=== PATIENT | female | born 1965 | race Caucasian/White ===

== ENCOUNTER 2018-04-03 06:51 | Inpatient (IN) | payer OTHER ==
[2018-04-03 07:58] LABS: #Basophils 0.1 thou/uL (0.0-0.2); #Eosinphils 0.4 thou/uL (0.0-0.7); #Lymphocytes 2.1 thou/uL (1.20-3.40); #Monocytes 0.8 thou/uL (0.11-0.59); %Basophils 1.2 % (0.0-1.0); %Eosinophils 4.2 % (0.0-10.0); %Lymphocytes 25.7 % (21.0-51.0); %Monocytes 9.1 % (0.0-10.0); %Neutrophils 59.8 % (42.0-75.0); Hemoglobin 13.7 g/dL (12.0-16.0); Mean Corpuscular HGB CONC 34.4 g/dL (32.0-36.0); Mean Corpuscular Hemoglobin 31.8 pg (27.0-31.0); Mean Corpuscular Volume 92.5 fL (78.0-98.0); Mean Platelet Volume 6.7 fL (7.4-10.4); Platelet Count 247 thou/uL (130-400); RBC Distribution Width 12.4 % (11.5-14.5); White Blood Cell (WBC) Count 8.3 thou/uL (4.8-10.8)
[2018-04-03 08:16] LABS: Anion Gap 12 mmol/L (10-20); BUN (Urea Nitrogen) 13 mg/dL (9.8-20.1); Calc. Creatinine Clearance 118 mL/min (70-130); Calcium 9.8 mg/dL (7.8-10.44); Carbon Dioxide 26 mmol/L (22-29); Chloride 107 mmol/L (98-107); Estimated GFR-MDRD 71; Glucose 111 mg/dL (70-105); Potassium 3.8 mmol/L (3.5-5.1); Sodium 141 mmol/L (136-145)
[2018-04-03] MEDS ORDERED: CEFAZOLIN/Water 2 GM/20 ML SYRINGE ONE ×2 (08:21)
[2018-04-03] MEDS ORDERED: Bacitracin Zinc Ointment 30 gm TUBE ONE (08:22)
[2018-04-03] MEDS ORDERED: Sodium Chloride 0.9% 0 ML ONE (08:54)
[2018-04-03] MEDS ORDERED: Promethazine HCl 25 MG/ML VIAL ONE ×2 (09:12→11:13)
[2018-04-03] MEDS ORDERED: HYDROmorphone 0.5 MG/0.5 ML SYRINGE ONE ×3 (09:12→11:43)
[2018-04-03] MEDS ORDERED: Fentanyl 100 MCG/2 ML VIAL ONE ×3 (10:04→11:56)
[2018-04-03] MEDS ORDERED: SUGAMMADEX SODIUM 200 MG/2 ML VIAL ONE (10:10)
--- NOTE | 2018-04-03 10:38 | OP ---
DATE OF PROCEDURE: 04/03/2018 SURGEON: Berto Gomes M.D. THREAD MACHINE OPERATOR: Ramin Wood PROCEDURE: Suboccipital craniectomy, C1 laminectomy, decompression of Chiari malformation. PROCEDURE IN DETAIL: The patient was brought to the operating room and intubated. She was rolled in the prone position on gel-filled chest rolls with head fixed in neutral position in the yuli head of maintenance. A midline incision was made exposing the suboccipital cranium and the C1 lamina. The midlin e suboccipital craniectomy was performed including the foramen magnum and a C1 laminectomy was perfor med completely decompressing the foramen magnum in the C1 region. The wound was then extensively irr igated, immaculate hemostasis was secured. Vancomycin powder was applied and the wound was closed in anatomic layers.
[2018-04-03] MEDS ORDERED: HYDROmorphone 2 MG/ML VIAL SLOW IVP PRN (10:52)
[2018-04-03] MEDS ORDERED: Ondansetron HCl/PF 4 MG/2 ML Vial IVP PRN (10:52)
[2018-04-03] MEDS ORDERED: Promethazine HCl 25 MG/ML VIAL SLOW IVP PRN (10:52)
[2018-04-03] MEDS ORDERED: Morphine Sulfate 2 MG/ML SYRINGE SLOW IVP PRN (10:52)
[2018-04-03] MEDS ORDERED: Mag-Al 1200 mg/1200 mg/30 ML UDCUP PO PRN (11:04)
[2018-04-03] MEDS ORDERED: traMADol HCl 50 MG TAB PO PRN ×2 (11:04)
[2018-04-03] MEDS ORDERED: Promethazine 25 MG TAB PO PRN (11:04)
[2018-04-03] MEDS ORDERED: tiZANidine HCl 4 MG TAB PO PRN (11:04)
[2018-04-03] MEDS ORDERED: Morphine 4 MG/ML Carpuject SLOW IVP PRN (11:04)
[2018-04-03] MEDS ORDERED: Promethazine HCl 12.5 MG SUPP PR PRN (11:04)
[2018-04-03] MEDS ORDERED: Milk Of Magnesia 30 ML UDCUP PO PRN (11:04)
[2018-04-03] MEDS ORDERED: HYDROcodone/Acetaminophen 10/325 mg Tablet PO PRN (11:04)
[2018-04-03] MEDS ORDERED: diphenhydrAMINE 25 MG CAP PO PRN (11:04)
[2018-04-03] MEDS ORDERED: Promethazine HCl 25 MG/ML VIAL IM PRN (11:04)
[2018-04-03] MEDS ORDERED: diphenhydrAMINE 50 MG/ML VIAL IVP PRN (11:04)
[2018-04-03] MEDS ORDERED: PROVENTIL INHALER 6.7 G (200 INHALATIONS) INH PRN (11:08)
[2018-04-03] MEDS ORDERED: Fioricet 325/50/40 mg Tablet PO PRN (11:09)
[2018-04-03] MEDS ORDERED: Loratadine/Pseudoephedrine 10/240 mg Tablet PO PRN (11:10)
[2018-04-03] MEDS ORDERED: Docusate 100 MG CAP PO PRN (11:10)
[2018-04-03] MEDS ORDERED: Ondansetron HCl/PF 4 MG/2 ML Vial ONE ×2 (12:24→13:57)
[2018-04-03] MEDS ORDERED: hydrALAZINE 20 MG/ML VIAL ONE (12:53)
[2018-04-03 13:33] VITALS: BMI 34.8
[2018-04-03] MEDS ORDERED: Glycopyrrolate 0.2 MG/ML 5 ML SYRINGE ONE (13:57)
[2018-04-03] MEDS ORDERED: Dexamethasone 20 MG/5 ML VIAL ONE (13:57)
[2018-04-03] MEDS ORDERED: PROPOFOL 200 MG/20 ML VIAL ONE (13:57)
[2018-04-03] MEDS ORDERED: CEFAZOLIN/Water 2 GM/20 ML SYRINGE SLOW IVP SCH (14:00)
[2018-04-03] MEDS: Sodium Chloride 0.9% 1,000 ML IV SCH (17:14)
[2018-04-03] MEDS: CEFAZOLIN/Water 2 GM/20 ML SYRINGE SLOW IVP SCH (17:15)
--- NOTE | 2018-04-03 18:46 | CON ---
DATE OF CONSULTATION: 04/03/2018 SERVICE: Pulmonary Medicine. REASON FOR CONSULTATION: ICU patient. HISTORY OF PRESENT ILLNESS: The patient is a 53-year-old white female with past medical history significant for Chiari malformation. She has been having some chronic discomfort associated with that. As such, she presented for an elective outpatient suboccipital craniectomy and C1 laminectomy. She is postop day 0 from that procedure. In the PACU, she had over 200 mcg of fentanyl. She is starting to have a little bit of nausea associated with that. Prior to this procedure, she was in her usual state of health and there were no specific events. She currently denies any chest pain, shortness of breath, abdominal discomfort, or diarrhea. She is having nausea and has vomited up a little bit of bilious material. She complains of having appropriate postop head discomfort. PAST MEDICAL HISTORY: 1. Chiari malformation. 2. Asthma. 3. Migraine headache. 4. Recent hydrocephalus. 5. Hypothyroidism. 6. Allergic rhinitis. 7. Osteoarthritis. 8. Major depressive disorder. PAST SURGICAL HISTORY: 1. Bilateral tubal ligation. 2. Laparoscopic cholecystectomy. 3. Deviated septum repair. 4. Bunionectomy. 5. BMT x2. 6. Suboccipital craniectomy and C1 laminectomy with decompression of Chiari malformation. FAMILY HISTORY: Noncontributory. SOCIAL HISTORY: Negative for alcohol, tobacco or significant illicit drug use. She has no exposures to chemicals, dusts, asbestos or tuberculosis. ALLERGIES: AZITHROMYCIN, INFLUENZA VIRUS, RANITIDINE. MEDICATIONS: List of her inpatient medications were reviewed. No specific updates were made at this time. REVIEW OF SYSTEMS: General, head, ears, eyes, nose, throat, cardiovascular, respiratory, GI, , musculoskeletal, neurologic and skin is negative except as mentioned in the HPI. PHYSICAL EXAMINATION: VITAL SIGNS: Afebrile, pulse 61, blood pressure 137/62, respirations 15, saturation 93% on simple facemask with 6 liters . HEENT: Normocephalic, atraumatic. Sclerae are white, conjunctivae pink. Oral mucosa is moist without lesions. LUNGS: Decent air entry. There is no prolonged expiratory phase, wheezing, rhonchi or crackles. HEART: Normal rate, regular. ABDOMEN: Soft, nontender, nondistended. Bowel sounds are positive. MUSCULOSKELETAL: No cyanosis or clubbing. There is no pitting in the bilateral lower extremities. NEUROLOGIC: Grossly nonfocal. LABORATORY DATA: WBC 8.3, hemoglobin 13.7, platelets 247,000. Basic metabolic profile is otherwise unremarkable. ASSESSMENT: 1. Chiari malformation, status post decompression, postop day 0. 2. Asthma without current exacerbation. 3. Postoperative ileus, likely transient. PLAN: I will continue supportive care and minimize any pain medications as tolerated. Frequent neuro checks will be followed. We will continue her home asthma medications and we will watch for signs of exacerbation. If she proves to have obstructive events overnight, outpatient polysomnogram may need to be entertained. Pulmonary will continue to follow while she remains in this location. 70 minutes have been devoted to this patient in various activities. I personally reviewed all imaging studies and laboratory data noted within this document. For fifty percent of this time, I was interacting with the patient at the bedside or coordinating care with the care team. For the remainder of the time I was immediately available to the patient in the hospital unit. JD
[2018-04-03] MEDS: Fluticasone Propionate Nasal Spray 16 gm Bottle NASAL SCH (21:13)
[2018-04-03] MEDS: Montelukast Sodium 10 mg Tablet PO SCH (21:13)
[2018-04-03] MEDS: Gabapentin 300 MG CAP PO SCH (21:13)
[2018-04-03] MEDS: Ondansetron HCl/PF 4 MG/2 ML Vial SLOW IVP PRN (21:21)
[2018-04-03] MEDS: Mometasone/Formoterol 120 PUFF INHALER INH SCH (22:24)
[2018-04-04] MEDS: Sodium Chloride 0.9% 1,000 ML IV SCH ×2 (02:11→14:58)
[2018-04-04] MEDS: CEFAZOLIN/Water 2 GM/20 ML SYRINGE SLOW IVP SCH (02:11)
[2018-04-04] MEDS: Levothyroxine Sodium 88 MCG TAB PO SCH (06:46)
[2018-04-04] MEDS: Mometasone/Formoterol 120 PUFF INHALER INH SCH ×2 (06:52→18:31)
--- NOTE | 2018-04-04 07:36 | PRG ---
DATE OF SERVICE: 04/04/2018 ATTENDING PHYSICIAN: Dr. Berto Gomes The patient is a 53-year-old female postoperative day #1 following suboccipital craniectomy and C1 la minectomy for Chiari malformation. Overnight she reports she has had some soreness to the back of th e neck and some headache in the occipital region. She has also had some nausea and vomiting. She re ports both her pain and her nausea have been improved with medications. She is not tolerating much o f a diet at this time and she has not ambulated much in the department. She has remained stable in t he ICU overnight and at this time I feel it is appropriate to transition to the floor. We will wendy nue to advance her diet and mobilize appropriately.
[2018-04-04] MEDS: Ondansetron HCl/PF 4 MG/2 ML Vial SLOW IVP PRN (07:39)
--- NOTE | 2018-04-04 09:08 | PRG ---
DATE OF SERVICE: SERVICE: Pulmonary Medicine INTERVAL HISTORY: The patient is doing really well post craniectomy. She continues to have a little bit of nausea that comes and goes. That being said, at this moment, she is feeling pretty good. Sh jennifer is moving all 4 extremities. She denies any vertigo. Otherwise, there has been no interval change to her condition. PHYSICAL EXAMINATION: VITAL SIGNS: Afebrile, pulse 54, blood pressure 157/61, respirations 16, saturation 96% on room air. GENERAL: The patient is awake, alert, in no apparent distress. LUNGS: Excellent air entry with no prolonged expiratory phase, wheezing, rhonchi or crackles. HEART: Normal rate, regular. ABDOMEN: Soft, nontender, nondistended. Bowel sounds are positive. MUSCULOSKELETAL: No cyanosis or clubbing. No pitting in the bilateral lower extremities. NEUROLOGIC: Grossly nonfocal. ASSESSMENT: 1. Chiari malformation, status post decompression, postop day #1. 2. Asthma without current exacerbation. 3. Postop ileus. DISCUSSION AND PLAN: The patient is still not tolerating p.o. and continues to have persistent episo dic nausea and vomiting. That being said, hemodynamically, neurologically, and respiratory godinez, the patient is doing absolutely wonderful. Agree with transition to the floor. When she lands on the prabhjot, I will sign off, but my suspicion is that she does have some sleep apnea based on a positive sc reen. As such, we will set her up to see me in clinic in the outpatient setting if she so inclined. We will work on mobilizing her through the day when she arrives on the floor.
[2018-04-04] MEDS: Fluticasone Propionate Nasal Spray 16 gm Bottle NASAL SCH ×2 (11:06→20:19)
[2018-04-04] MEDS: Ascorbic Acid 500 mg Chewable Tablet PO SCH (11:06)
[2018-04-04] MEDS: Magnesium Oxide 250 MG TAB PO SCH (11:06)
[2018-04-04] MEDS: Multivit, Chewable SF 1 TAB PO SCH (11:06)
[2018-04-04] MEDS: HYDROcodone/Acetaminophen 10/325 mg Tablet PO PRN ×2 (15:36→19:26)
--- NOTE | 2018-04-04 20:26 | PDOC.PN ---
- Subjective Encounter Start Date: 04/04/18 Encounter Start Time: 20:25 Subjective: Consulted for general med mgmt. s/p suboccipital craniectomy and C1 -: laminectomy for Chiari malformation POD#1. Hx of Asthma, Migraines, -: Hypothyroidism. Reviewed hx, labs, rads. Some pain but better with Dow - Objective MAR Reviewed: Yes Vital Signs & Weight: Vital Signs (12 hours) Temp Pulse Resp BP BP Pulse Ox 04/04/18 18:31 77 16 94 L 04/04/18 15:50 98.1 F 77 18 178/79 H 92 L 04/04/18 11:29 99.3 F 70 12 155/75 H 94 L 04/04/18 08:53 98.8 F 67 16 148/82 H 96 04/04/18 08:52 98.8 F 67 16 96 Weight Weight 216 lb 0.848 oz Most Recent Monitor Data Heart Rate from ECG 77 NIBP 157/61 NIBP BP-Mean 86 Respiration from ECG 16 SpO2 96 I&O: 04/03/18 04/04/18 04/05/18 06:59 06:59 06:59 Intake Total 1366 875 Output Total 1600 1300 Balance -234 -425 Result Diagrams: 04/03/18 07:53 04/03/18 07:53 EKG Reviewed by me: Yes (04/03/18 - NSR, no acute ST-T wave changes) Phys Exam - Physical Examination Constitutional: NAD HEENT: PERRLA, sclera anicteric, oral pharynx no lesions Neck: no nodes, no JVD, supple Respiratory: no wheezing, no rales, no rhonchi, clear to auscultation bilateral Cardiovascular: RRR, no significant murmur, no rub, gallop Gastrointestinal: soft, non-tender, no distention, positive bowel sounds Musculoskeletal: no edema, pulses present Neurological: non-focal, normal sensation, moves all 4 limbs Psychiatric: normal affect, A&O x 3 Skin: no rash, normal turgor, cap refill <2 seconds Dx/Plan (1) Asthma Code(s): J45.909 - UNSPECIFIED ASTHMA, UNCOMPLICATED Status: Chronic Qualifiers: Asthma severity: moderate Comment: Continue Albuterol, Flonase, Singulair and Dulera (2) Hypothyroid Code(s): E03.9 - HYPOTHYROIDISM, UNSPECIFIED Status: Chronic Comment: Continue Levothyroxine 88mcg daily (3) Migraine headache Code(s): G43.909 - MIGRAINE, UNSP, NOT INTRACTABLE, WITHOUT STATUS MIGRAINOSUS Status: Chronic Comment: Continue Fioricet, Gabapentin (4) Chiari I malformation Status: Chronic Comment: s/p suboccipital craniectomy and C1 laminectomy POD # 1 (5) Status post craniectomy Code(s): Z98.890 - OTHER SPECIFIED POSTPROCEDURAL STATES Status: Acute Comment: POD #1, pain control, OOB - Plan continue antibiotics, PT/OT, social media director, out of bed/ambulate, DVT proph w/ SCDs Stable currently -: Continue chronic inhalers and bronchodilators -: OOB/ambulate -: DVT ppx -: Pain control with Dow * Thank you for the consult. Will continue to follow with primary service
[2018-04-04] MEDS: Gabapentin 300 MG CAP PO SCH (21:48)
[2018-04-04] MEDS: Montelukast Sodium 10 mg Tablet PO SCH (21:48)
[2018-04-05] MEDS: HYDROcodone/Acetaminophen 10/325 mg Tablet PO PRN ×2 (04:44→09:55)
[2018-04-05] MEDS: Sodium Chloride 0.9% 1,000 ML IV SCH (04:45)
[2018-04-05] MEDS: Levothyroxine Sodium 88 MCG TAB PO SCH (06:05)
[2018-04-05] MEDS: Mometasone/Formoterol 120 PUFF INHALER INH SCH (06:38)
[2018-04-05] MEDS: Magnesium Oxide 250 MG TAB PO SCH (08:29)
[2018-04-05] MEDS: Multivit, Chewable SF 1 TAB PO SCH (08:29)
[2018-04-05] MEDS: Ascorbic Acid 500 mg Chewable Tablet PO SCH (08:29)
[2018-04-05] MEDS: Fluticasone Propionate Nasal Spray 16 gm Bottle NASAL SCH (08:30)
[2018-04-05 08:38] VITALS: BP 132/72; TEMP 98.9
== END 2018-04-05 10:34 | disposition home or self-care (01) | DRG 26 ==
LOC: SURG A 06:51 → CCU 12:07 → SURG A 04-04 08:48
PROVIDERS: ADMIT Neurological Surgery; ATTEND Neurological Surgery
PROC: 00NC0ZZ Release Cerebellum, Open Approach (ICD-10-PCS; principal; 2018-04-03)
DX: G93.5 Compression of brain (principal); K56.7 Ileus, unspecified; J45.909 Unspecified asthma, uncomplicated; G47.30 Sleep apnea, unspecified; G43.909 Migraine, unspecified, not intractable, without status migrainosus; E03.9 Hypothyroidism, unspecified; K21.9 Gastro-esophageal reflux disease without esophagitis; M19.90 Unspecified osteoarthritis, unspecified site; F32.9 Major depressive disorder, single episode, unspecified; Z88.1 Allergy status to other antibiotic agents; Z88.8 Allergy status to other drugs, medicaments and biological substances
CPT/HCPCS: 36416; 80048; 85025; 93005; 93010; A4216; G8978-GP-CJ; G8979-GP-CH; J0360; J1100; J1170; J2270; J2405; J2550; J2704; J3010; J3370; J3490